=== PATIENT | female | born 1980 | race Caucasian/White ===

== ENCOUNTER 2019-04-18 08:28 | Inpatient (IN) | payer MEDICAID ==
[2019-04-18] MEDS ORDERED: Meropenem 500 MG SDV ONE (09:29)
[2019-04-18] MEDS ORDERED: Lidocaine 1% with EPINEPHrine 1:100,000 50 ML MDV ONE (09:30)
[2019-04-18] MEDS ORDERED: Bupivacaine 0.5% 50 ML MDV ONE (09:30)
[2019-04-18] MEDS ORDERED: Succinylcholine 200 MG/10 ML MDV ONE (09:38)
[2019-04-18] MEDS ORDERED: Ondansetron 4 MG/2 ML SDV ONE (09:38)
[2019-04-18] MEDS ORDERED: fentaNYL 250 MCG/5 ML SDV ONE ×2 (09:38→10:57)
[2019-04-18] MEDS ORDERED: Glycopyrrolate 0.2 MG/ML 5 ML MDV ONE (09:38)
[2019-04-18] MEDS ORDERED: Neostigmine Methylsulfate 1 MG/ML 5 ML Syringe ONE (09:38)
[2019-04-18] MEDS ORDERED: Dexamethasone 4 MG/ML SDV ONE (09:38)
[2019-04-18] MEDS ORDERED: Rocuronium 50 MG/5 ML Vial ONE (09:38)
[2019-04-18] MEDS ORDERED: Propofol 200 MG/20 ML SDV ONE (09:38)
[2019-04-18] MEDS ORDERED: Scopolamine 1.5 MG Transdermal Patch TOP SCH (10:00)
[2019-04-18] MEDS ORDERED: Acetaminophen 500 MG Tab PO ONE (10:00)
[2019-04-18] MEDS ORDERED: Dextrose 5%-Lactated Ringers 1,000 ML IV SCH ×3 (10:00→14:15)
[2019-04-18] MEDS ORDERED: Albuterol/Ipratropium 3.0-0.5 MG/3 ML Neb Soln NEB ONE (10:30)
[2019-04-18] MEDS ORDERED: Magnesium Sulfate 3.3 GM in Sodium Chloride 0.9% 100 ML IV SCH (10:30)
[2019-04-18] MEDS ORDERED: Ketamine 50 MG in Sodium Chloride 0.9% 49.5 ML IV SCH (10:30)
[2019-04-18] MEDS ORDERED: Ketamine 500 MG/5 ML MDV IV SCH (10:30)
[2019-04-18] MEDS ORDERED: Magnesium Sulfate 7 GM in Sodium Chloride 0.9% 250 ML IV ONE (10:30)
[2019-04-18] MEDS ORDERED: cefOXitin 2 GM in Sodium Chloride 0.9% 50 ML IV ONE ×2 (10:30→11:45)
[2019-04-18] MEDS ORDERED: Lactated Ringers 1,000 ML ONE (11:30)
[2019-04-18] MEDS ORDERED: hydrOXYzine HCL 100 MG/2 ML SDV IM ONE (12:20)
[2019-04-18] MEDS ORDERED: fentaNYL 100 MCG/2 ML SDV IVPUSH ONE ×2 (12:21→12:42)
[2019-04-18] MEDS ORDERED: hydrOXYzine HCL 100 MG/2 ML SDV ONE (13:42)
[2019-04-18] MEDS ORDERED: Cyclobenzaprine 10 MG Tab PO PRN ×2 (13:50→14:15)
[2019-04-18] MEDS ORDERED: diphenhydrAMINE 50 MG/ML SDV IVPUSH PRN ×2 (13:50→14:15)
[2019-04-18] MEDS ORDERED: Metoclopramide 10 MG/2 ML SDV IV PRN ×2 (13:50→14:15)
[2019-04-18] MEDS ORDERED: hydrOXYzine HCL 100 MG/2 ML SDV IM PRN ×2 (13:50→14:15)
[2019-04-18] MEDS ORDERED: Non-Formulary Medication 1 Each IV ONE ×2 (13:50)
[2019-04-18] MEDS ORDERED: Ondansetron 4 MG/2 ML SDV IVPUSH PRN ×2 (13:50→14:15)
[2019-04-18] MEDS ORDERED: Labetalol 100 MG/20 ML MDV IVPUSH PRN ×2 (13:50→14:20)
[2019-04-18] MEDS ORDERED: Gabapentin 250 MG/5 ML Solution ML 470 ML Bottle PO SCH (14:00)
[2019-04-18] MEDS ORDERED: Acetaminophen 500 MG Tab PO SCH (14:00)
[2019-04-18] MEDS ORDERED: Calcium Gluconate 10% 1 GM/10 ML SDV IVPUSH PRN (14:24)
[2019-04-18] MEDS ORDERED: Albuterol/Ipratropium 3.0-0.5 MG/3 ML Neb Soln INH PRN (14:24)
[2019-04-18] MEDS ORDERED: Acetaminophen 500 MG Tab PO PRN (14:24)
[2019-04-18] MEDS ORDERED: HYDROmorphone 1 MG/ML Syringe IV PRN (14:24)
[2019-04-18] MEDS ORDERED: oxyCODONE 5 MG Tab PO PRN (14:24)
[2019-04-18] MEDS: HYDROmorphone 0.5 MG/0.5 ML Syringe IVPUSH PRN ×2 (14:45→19:58)
[2019-04-18] MEDS: Albuterol/Ipratropium 3.0-0.5 MG/3 ML Neb Soln INH SCH ×2 (14:47→21:38)
[2019-04-18] MEDS ORDERED: Sodium Ferric Gluconate Cmplex 250 MG in Sodium Chloride 0.9% 100 ML IV ONE (15:00)
[2019-04-18] MEDS ORDERED: Pantoprazole 40 MG Vial IVPUSH SCH (16:00)
[2019-04-18] MEDS ORDERED: MVI, Adult with Vitamin K 10 ML, Thiamine 200 MG, Chromium/Copper/Mang/Selen/Zn 1 ML in... IV SCH ×8 (16:00)
[2019-04-18] MEDS: cefOXitin 2 GM in Sodium Chloride 0.9% 50 ML IV SCH ×2 (16:19→21:17)
[2019-04-18] MEDS: MVI, Adult with Vitamin K 10 ML, Thiamine 200 MG, Chromium/Copper/Mang/Selen/Zn 1 ML in... IV SCH ×4 (16:19)
[2019-04-18] MEDS: Acetaminophen 500 MG Tab PO SCH (18:40)
[2019-04-18] MEDS: Heparin Sodium 5,000 Units/ML Vial SUBCUT SCH (19:45)
[2019-04-18] MEDS: Gabapentin 250 MG/5 ML Solution ML 470 ML Bottle PO SCH (20:05)
[2019-04-18] MEDS: Dextrose 5%-Lactated Ringers 1,000 ML IV SCH (23:04)
[2019-04-19] MEDS: Acetaminophen 500 MG Tab PO SCH ×3 (01:30→19:30)
[2019-04-19] MEDS: HYDROmorphone 0.5 MG/0.5 ML Syringe IVPUSH PRN (02:48)
[2019-04-19] MEDS ORDERED: Iopamidol 612 MG/ML 50 ML SDV PO STA (02:58)
[2019-04-19] MEDS: Dextrose 5%-Lactated Ringers 1,000 ML IV SCH (04:42)
[2019-04-19] MEDS: cefOXitin 2 GM in Sodium Chloride 0.9% 50 ML IV SCH ×2 (04:46→09:00)
[2019-04-19] MEDS: Albuterol/Ipratropium 3.0-0.5 MG/3 ML Neb Soln INH SCH ×4 (07:04→22:15)
[2019-04-19] MEDS ORDERED: Ondansetron 4 MG Tab.DIS PO PRN (07:12)
[2019-04-19] MEDS ORDERED: Celecoxib 200 MG Cap PO SCH (08:00)
[2019-04-19] MEDS: Heparin Sodium 5,000 Units/ML Vial SUBCUT SCH ×2 (08:29→21:00)
[2019-04-19] MEDS: SCOPOLAMINE PATCH CHECK TOP SCH (08:30)
[2019-04-19] MEDS: Celecoxib 200 MG Cap PO SCH ×2 (08:30→22:12)
[2019-04-19] MEDS: HYDROmorphone 2 MG Tab PO PRN ×3 (08:42→19:36)
[2019-04-19] MEDS: Gabapentin 250 MG/5 ML Solution ML 470 ML Bottle PO SCH ×3 (08:43→22:15)
[2019-04-19] MEDS ORDERED: Pantoprazole 40 MG Vial IVPUSH SCH (09:00)
--- NOTE | 2019-04-19 09:06 | CR ---
UGI CLINICAL HISTORY: Status post gastric bypass FINDINGS: Patient swallowed water-soluble contrast. The there is no evidence of leakage or obstruction at the gastric remanent. Delayed images shows contrast through the proximal to mid small bowel IMPRESSION: Status post recent gastric bypass No leakage or obstruction
--- NOTE | 2019-04-19 09:26 | PN ---
DATE OF SERVICE: 04/19/2019 SUBJECTIVE: Sagrario is postoperative day #1. Her upper GI was normal. Her pain has been controlled. She has been quite sleepy. Vital signs stable. Oral intake 420 and urine output 700. REVIEW OF SYSTEMS: Remainder of review of systems negative for any pertinent positives and negatives. OBJECTIVE: GENERAL: Sagrario Cherry is a pleasant 38-year-old female. She arouses easily. VITAL SIGNS: TPR is 96.9, 88, 16, blood pressure 115/60. HEENT: Negative. NECK: Supple. HEART: Regular rate and rhythm. LUNGS: Clear. ABDOMEN: Dressings dry and intact. Abdominal binder is on. EXTREMITIES: Without peripheral edema. ASSESSMENT: 1. Exploratory laparotomy with: a. Reduction of small bowel volvulus and closure of internal hernia. b. Small bowel resection. c. Enterostomy to Paxton-en-Y to redo Paxton-en-Y anatomy. d. Excision of peritoneal body. e. Placement of Interceed mesh for partial small bowel obstruction secondary to small bowel volvulus and stricture of the Paxton limb enterotomy of the jejunostomy and peritoneal body mass 1.5 cm. Date of surgery: 04/18/2019. Surgeon: Bimal Hastings MD. PLAN: Decrease IV to 100 per hour. May shower. Step 3 gastric bypass diet. Dilaudid 2 to 4 mg every 4 hours p.r.n. pain. Zofran ODT 4 mg sublingual q.4 hours p.r.n. nausea. Good pulmonary toilet. We will evaluate p.r.n. or in a.m. Katlyn García PA-C /[id number]
[2019-04-19] MEDS ORDERED: Sodium Ferric Gluconate Cmplex 250 MG in Sodium Chloride 0.9% 100 ML IV ONE (10:00)
[2019-04-19] MEDS ORDERED: Dextrose 5%-Lactated Ringers 1,000 ML IV SCH (12:00)
[2019-04-19] MEDS: MVI, Adult with Vitamin K 10 ML, Thiamine 200 MG, Chromium/Copper/Mang/Selen/Zn 1 ML in... IV SCH ×4 (16:52)
[2019-04-19] MEDS: Pantoprazole 40 MG Delayed-Release Granules 1 Packet PO SCH (16:54)
[2019-04-20] MEDS: Acetaminophen 500 MG Tab PO SCH ×3 (02:17→18:24)
[2019-04-20] MEDS: Albuterol/Ipratropium 3.0-0.5 MG/3 ML Neb Soln INH SCH ×4 (07:18→20:31)
[2019-04-20] MEDS: Heparin Sodium 5,000 Units/ML Vial SUBCUT SCH ×2 (07:33→20:31)
[2019-04-20] MEDS ORDERED: Cyanocobalamin (Vitamin B12) 1,000 MCG/ML SDV IM ONE (09:00)
[2019-04-20] MEDS: Celecoxib 200 MG Cap PO SCH ×2 (09:59→20:31)
[2019-04-20] MEDS: SCOPOLAMINE PATCH CHECK TOP SCH (10:00)
[2019-04-20] MEDS: Gabapentin 250 MG/5 ML Solution ML 470 ML Bottle PO SCH ×3 (10:00→20:34)
[2019-04-20] MEDS ORDERED: Sodium Chloride 0.9% 10 ML Syringe IV PRN (10:07)
[2019-04-20] MEDS: Docusate Sodium 100 MG Cap PO SCH ×2 (12:08→20:31)
[2019-04-20] MEDS: Bisacodyl 5 MG Tab PO SCH ×2 (12:08→20:31)
[2019-04-20] MEDS: Pantoprazole 40 MG Delayed-Release Granules 1 Packet PO SCH (18:23)
[2019-04-21] MEDS: Acetaminophen 500 MG Tab PO SCH ×2 (01:33→10:57)
[2019-04-21] MEDS: Albuterol/Ipratropium 3.0-0.5 MG/3 ML Neb Soln INH SCH (07:30)
[2019-04-21] MEDS: Bisacodyl 5 MG Tab PO SCH (08:09)
[2019-04-21] MEDS: Heparin Sodium 5,000 Units/ML Vial SUBCUT SCH (08:09)
[2019-04-21] MEDS: Celecoxib 200 MG Cap PO SCH (08:09)
[2019-04-21] MEDS: Docusate Sodium 100 MG Cap PO SCH (08:10)
[2019-04-21] MEDS: Gabapentin 250 MG/5 ML Solution ML 470 ML Bottle PO SCH (10:57)
--- NOTE | 2019-04-21 13:34 | PN ---
DATE OF SERVICE: 04/20/2019 The patient has been afebrile with stable vital signs. She stopped burping a little bit and has moved her bowels. She is having probably some element of a GI tract ileus. We will begin some bowel stimulation today. Continue the step 3 diet. Oral intake is up, we will saline lock IV, and that she may be ready for discharge home tomorrow. Bimal Hastings MD /[id number]
--- NOTE | 2019-04-21 14:58 | DISCH ---
FINAL DIAGNOSES: 1. Partial small bowel obstruction secondary to small bowel volvulus and stricture at the point of Paxton limb entering the jejunojejunostomy. 2. Peritoneal body. 3. Bariatric surgery status. 4. History of asthma. 5. History of stress incontinence. OPERATIVE PROCEDURES: Done on 04/18/2019, exploratory laparotomy with: 1. Reduction of small bowel volvulus and closure of internal hernia. 2. Small bowel resection. 3. Secondary enteroenterostomy to reestablish small bowel Paxton-en-Y anatomy. 4. Excision of peritoneal body. 5. Placement of Interceed mesh to limit recurrent adhesion formation. SUMMARY: This is a 38-year-old female status post Paxton-en-Y gastric bypass presenting with a picture of small bowel obstruction. At that time of exploration, she was noted to have small bowel volvulus which was reduced and the mesenteric defect closed. She also had stricturing at the point where the small bowel was entering the jejunojejunostomy and that anastomosis was resected and reconstructed. We did not make any significant changes in her Paxton limb or common limb-lengths. The patient had a peritoneal body which was adherent to the anterior abdominal wall which was excised and Interceed mesh was placed to limit recurrent adhesion formation. Postoperatively, the patient had no major problems. She had been tolerating a step-3 diet, still had a little bit of nausea last night, but it has now cleared. She will be instructed to remove the newly replaced Aquacel dressing on morning. Otherwise, will be following with Katlyn García at [facility] on 04/29/2019 at 10:30 a.m. She will continue her home medications plus Dilaudid 2 to 4 mg p.o. q.4 hours p.r.n. pain #30, Tylenol 1 g p.o. q.6 hours p.r.n. pain, Zofran 4 mg ODT q.4 hours p.r.n. nausea #30, and Celebrex 200 mg p.o. b.i.d. x7 days, #14.
--- NOTE | 2019-04-22 13:05 | OR ---
DATE OF PROCEDURE: 04/18/2019 SURGEON: Bimal Hastings MD PREOPERATIVE DIAGNOSIS: Partial small bowel obstruction. POSTOPERATIVE DIAGNOSES: 1. Partial small bowel obstruction secondary to small bowel volvulus and stricture at the point of the Paxton limb entering jejunojejunostomy. 2. Peritoneal body underlying . OPERATIVE PROCEDURES: Exploratory laparotomy with: 1. Reduction of small bowel volvulus and closure of internal hernia (51603). 2. Small bowel resection (11329). 3. Secondary enteroenterostomy to reestablish Paxton-en-Y small bowel anatomy (50048). 4. Excision of peritoneal body (57591). 5. Placement of Interceed mesh to limit recurrent adhesion formation in the pelvic and abdominal wall and underlying viscera (16704). ANESTHESIA: General. QA REVIEWER: Katlyn García PA-C. INDICATION FOR PROCEDURE: The patient is status post previous Paxton-en-Y gastric bypass with findings suggestive of some partial small bowel obstruction. Plan is to proceed with a limited laparotomy and reduction of a volvulus might be encountered as well as lysis of adhesions and small bowel resection as indicated. Potential risks including bleeding, infection, leaks from GI tract closures, possible recurrence of the problem over time as well as the remote possibility of cardiopulmonary, septic, or hemorrhagic complications leading to were all discussed, and the patient wishes to proceed. DETAILS OF PROCEDURE: The patient was taken to the operating room and placed in a supine position. After general endotracheal anesthesia was induced, a Mazariegos catheter was inserted and the abdomen prepped and draped. A midline incision from the umbilicus roughly a handsbreadth toward the xiphoid was made and carried down through the full-thickness abdominal wall. Upon entering the peritoneal cavity, initially a 1.5 cm peritoneal body was identified adherent to the anterior abdominal wall just to the right of the midline. This was excised and sent as a separate specimen. Following this, examination of the small bowel showed a volvulus involving the area of the jejunojejunostomy prolapsing in a plane underneath the [place] limb. This was reduced. The patient was noted at that point to have a fairly prominent fixed stricture at the point where the small bowel Paxton limb entered the enteroenterostomy. At that point, the decision was made to resect that anastomosis. The components of that jejunojejunostomy were then divided with JEN staplers as was the underlying mesentery. The specimen was delivered from the field. Additional GI tract continuity was then established with anastomosis between what had been the end of the biliopancreatic limb to the beginning of the common limb with a [id number] enteroenterostomy with 60 mm JEN stapler. The common opening was closed transversely with the same stapler and the angles anastomosed and reinforced with some 3-0 Vicryl stitch and the mesenteric defect with a 2-0 silk stitch. GI tract continuity was then established roughly 20 cm distal to that anastomosis with the anastomosis of the Paxton limb to the bowel at that level and the same sequence of staplers was used and the mesenteric defect likewise closed with a 2-0 silk stitch. At that point, no further problems were noted. The abdomen was irrigated with antibiotic-containing saline solution to limit recurrent adhesion formation. Interceed mesh was placed underneath the incision and downward toward the pelvis. The midline fascia was then approximated with #2 Vicryl stitch, subcutaneous tissue with 2 layers of 3-0 and 4-0 Vicryl stitch deep, and marquise for the skin. The patient intraoperatively received bilateral transversus abdominis plane blocks and also the fascia anesthetized with 1.5% Marcaine mixed with lidocaine. The patient was taken to the recovery room in satisfactory condition. Physician visitor information assistant, Katlyn García, played an essential role in assisting in this case, helping to position the patient, retract structures as needed, as well as suturing and cutting sutures when indicated. Her presence improved patient safety and decreased the operative time. Bimal Hastings MD /[id number]
== END 2019-04-21 10:45 | disposition home or self-care (01) | DRG 326 ==
LOC: JP.SDSSCHI 08:28 → JP.SDS 08:29 → JP.MS 12:05 → EDSTATUS 13:00
PROVIDERS: ADMIT Surgery; ATTEND Surgery
PROC: 0D160ZA Bypass Stomach to Jejunum, Open Approach (ICD-10-PCS; principal; 2019-04-18)
PROC: 0DS80ZZ Reposition Small Intestine, Open Approach (ICD-10-PCS; 2019-04-18)
PROC: 0DB80ZZ Excision of Small Intestine, Open Approach (ICD-10-PCS; 2019-04-18)
PROC: 0HB9XZZ Excision of Perineum Skin, External Approach (ICD-10-PCS; 2019-04-18)
PROC: 3E0M05Z Introduction of Adhesion Barrier into Peritoneal Cavity, Open Approach (ICD-10-PCS; 2019-04-18)
DX: K95.89 Other complications of other bariatric procedure (principal); K56.2 Volvulus; K91.2 Postsurgical malabsorption, not elsewhere classified; E66.01 Morbid (severe) obesity due to excess calories; J45.909 Unspecified asthma, uncomplicated; E53.8 Deficiency of other specified B group vitamins; E55.9 Vitamin D deficiency, unspecified; K46.9 Unspecified abdominal hernia without obstruction or gangrene; Z79.51 Long term (current) use of inhaled steroids; Z79.2 Long term (current) use of antibiotics; Z79.899 Other long term (current) drug therapy; Z98.84 Bariatric surgery status; Z68.36 Body mass index [BMI] 36.0-36.9, adult
CPT/HCPCS: 74240; 74240-26; 74246-26; 81025; 88305; 88307; 93005; 94640; A9270-GY; C9113; J0171; J0330; J0694; J1100; J1170; J1644; J2185; J2405; J2704; J2710; J2795; J2916; J3010; J3410; J3411; J3420; J3475; J3490; J7050; J7120; J7121; J7620-GY; Q9967

== ENCOUNTER 2019-10-07 07:14 | Inpatient (IN) | payer MEDICAID ==
[~2019-10-07 07:14] MED LIST: Dexamethasone 4 MG/ML SDV ONE; Glycopyrrolate 0.2 MG/ML 5 ML MDV ONE; Meropenem 500 MG SDV ONE; Neostigmine Methylsulfate 1 MG/ML 5 ML Syringe ONE; Ondansetron 4 MG/2 ML SDV ONE; Rocuronium 50 MG/5 ML Vial ONE; Succinylcholine 200 MG/10 ML MDV ONE; fentaNYL 250 MCG/5 ML SDV ONE
[2019-10-07] MEDS ORDERED: Acetaminophen 500 MG Tab PO ONE ×2 (08:15→15:16)
[2019-10-07] MEDS ORDERED: Celecoxib 200 MG Cap PO ONE (08:15)
[2019-10-07] MEDS ORDERED: Dextrose 5%-Lactated Ringers 1,000 ML IV SCH (08:45)
[2019-10-07] MEDS ORDERED: diphenhydrAMINE 25 MG Cap PO PRN (09:30)
[2019-10-07] MEDS ORDERED: HYDROmorphone/Normal Saline 15 MG/30 ML PCA IV PRN (09:30)
[2019-10-07] MEDS ORDERED: Ketamine 50 MG in Sodium Chloride 0.9% 49.5 ML IV SCH (09:30)
[2019-10-07] MEDS ORDERED: ceFAZolin 2 GM in Premix Bag 1 BAG IV ONE (09:30)
[2019-10-07] MEDS ORDERED: Albuterol 8 GM Inhaler INH ONE (09:30)
[2019-10-07] MEDS ORDERED: Ketamine 500 MG/5 ML MDV IV SCH (09:30)
[2019-10-07] MEDS ORDERED: diphenhydrAMINE 50 MG/ML SDV IVPUSH PRN (09:30)
[2019-10-07] MEDS ORDERED: Ondansetron 4 MG/2 ML SDV IVPUSH PRN ×2 (09:30→14:20)
[2019-10-07] MEDS ORDERED: Naloxone 0.4 MG/ML SDV IVPUSH PRN (09:30)
[2019-10-07] MEDS ORDERED: Ropivacaine 50 ML, dexAMETHasone 8 MG, EPINEPHrine 0.4 MG, Sodium Chloride 0.9% 27.6 ML NERVRT SCH ×4 (09:30)
[2019-10-07] MEDS ORDERED: Naloxone 0.4 MG/ML SDV IV PRN (10:00)
[2019-10-07] MEDS ORDERED: fentaNYL 250 MCG/5 ML SDV ONE (11:57)
[2019-10-07] MEDS ORDERED: Lactated Ringers 1,000 ML ONE (12:01)
[2019-10-07] MEDS ORDERED: Rocuronium 50 MG/5 ML Vial ONE (12:16)
[2019-10-07] MEDS: Lidocaine 1% with EPINEPHrine 1:100,000 50 ML MDV ONE ×2 (12:25→12:51)
[2019-10-07] MEDS: Bupivacaine 0.5% 30 ML SDV ONE ×2 (12:25→12:51)
[2019-10-07] MEDS ORDERED: Propofol 200 MG/20 ML SDV ONE (12:54)
[2019-10-07] MEDS ORDERED: hydrOXYzine HCL 100 MG/2 ML SDV IM ONE (13:41)
[2019-10-07] MEDS ORDERED: hydrOXYzine HCL 100 MG/2 ML SDV IM PRN (14:19)
[2019-10-07] MEDS ORDERED: Albuterol/Ipratropium 3.0-0.5 MG/3 ML Neb Soln INH PRN (15:00)
[2019-10-07] MEDS: Cyclobenzaprine 10 MG Tab PO PRN ×2 (15:04→22:31)
[2019-10-07] MEDS ORDERED: Lactated Ringers 500 ML IV ONE (15:15)
[2019-10-07] MEDS: Albuterol/Ipratropium 3.0-0.5 MG/3 ML Neb Soln INH SCH ×2 (15:38→21:13)
[2019-10-07] MEDS: Dextrose 5%-Lactated Ringers 1,000 ML IV SCH ×2 (15:41→22:15)
[2019-10-07] MEDS: ceFAZolin 2 GM in Premix Bag 1 BAG IV SCH (17:27)
[2019-10-07] MEDS: Acetaminophen 500 MG Tab PO SCH (21:14)
[2019-10-08] MEDS: ceFAZolin 2 GM in Premix Bag 1 BAG IV SCH ×2 (02:25→09:45)
[2019-10-08] MEDS: Acetaminophen 500 MG Tab PO SCH ×4 (03:12→21:00)
[2019-10-08] MEDS: Dextrose 5%-Lactated Ringers 1,000 ML IV SCH (04:28)
[2019-10-08] MEDS ORDERED: Ondansetron 4 MG Tab.DIS PO PRN (06:56)
[2019-10-08] MEDS: Albuterol/Ipratropium 3.0-0.5 MG/3 ML Neb Soln INH SCH ×4 (07:50→21:00)
[2019-10-08] MEDS: Bisacodyl 5 MG Tab PO SCH ×2 (08:28→21:00)
[2019-10-08] MEDS: Docusate Sodium 100 MG Cap PO SCH ×2 (08:28→21:00)
[2019-10-08] MEDS: HYDROmorphone 2 MG Tab PO PRN ×3 (08:29→19:34)
[2019-10-08] MEDS ORDERED: Cyanocobalamin (Vitamin B12) 1,000 MCG/ML SDV IM ONE (09:00)
--- NOTE | 2019-10-08 09:01 | PN ---
DATE OF SERVICE: 10/08/2019 SUBJECTIVE: Sagrario is postoperative day #1. Pain has been controlled with the LEARN [employer] IN[employer]CTOR. She is desiring to switch to oral pain medication. She has been up ambulating. Oral intake 1480. Urine output via Mazariegos catheter is 1095. She has no questions or concerns. REVIEW OF SYSTEMS: Remainder of review of systems negative for any pertinent positives and negatives. OBJECTIVE: GENERAL: Sagrario Cherry is a pleasant 39-year-old female. She is alert and orientated. Color pale. VITAL SIGNS: TPR at 0314, 96.7, 76, 16, and blood pressure 98/52. HEENT: Negative. NECK: Supple. HEART: Regular rate and rhythm. LUNGS: Clear. ABDOMEN: Dressing dry and intact. Abdominal binder is on. EXTREMITIES: Without peripheral edema. ASSESSMENT: Exploratory laparotomy with lysis of adhesions. 1. Reduction of small bowel volvulus and closure of internal hernia. 2. Repair of incarcerated incisional hernia with mesh. 3. Excision of peritoneal nodule. POSTOPERATIVE DIAGNOSES: 1. Incarcerated incisional hernia. 2. Extensive adhesions with small bowel volvulus. 3. Elongated peritoneal nodule on abdominal wall, 7 cm total. Date of procedure 10/07/2019. Surgeon: Bimal Hastings MD. PLAN: 1. Magnesium 2 g IV q.6 hours x72 hours. 2. Step 2 gastric bypass diet. 3. Discontinue D5 LR and change to lactated Ringer 100 mL/h. 4. Discontinue Mazariegos. 5. Discontinue LEARN TO SWIM INSTRUCTOR, continuous pulse ox. 6. Dilaudid 2 mg 2 to 4 q.4 hours p.r.n. pain. 7. May shower. 8. Colace 100 mg b.i.d. 9. Dulcolax 10 mg 2 tablets b.i.d. orally and discontinue when the patient has bowel movement. 10.Continue use of incentive spirometer as directed. 11.We will evaluate p.r.n. or in a.m. Katlyn García PA-C /[id number]
[2019-10-08] MEDS: Magnesium Sulfate/Water 2 GM in Premix Bag 1 BAG IV SCH ×3 (10:57→21:00)
[2019-10-08] MEDS: Cyclobenzaprine 10 MG Tab PO PRN (12:02)
[2019-10-08] MEDS: Lactated Ringers 1,000 ML IV SCH (18:23)
[2019-10-09] MEDS: Acetaminophen 500 MG Tab PO SCH ×4 (03:07→21:00)
[2019-10-09] MEDS: Magnesium Sulfate/Water 2 GM in Premix Bag 1 BAG IV SCH ×4 (03:07→21:01)
[2019-10-09] MEDS: Albuterol/Ipratropium 3.0-0.5 MG/3 ML Neb Soln INH SCH ×4 (06:59→20:56)
[2019-10-09] MEDS: HYDROmorphone 2 MG Tab PO PRN ×3 (07:41→17:26)
[2019-10-09] MEDS: Cyclobenzaprine 10 MG Tab PO PRN ×2 (08:26→20:58)
[2019-10-09] MEDS: Bisacodyl 5 MG Tab PO SCH ×2 (08:34→20:56)
[2019-10-09] MEDS: Docusate Sodium 100 MG Cap PO SCH ×2 (08:34→20:56)
[2019-10-09] MEDS: Bisacodyl 10 MG Supp RECTAL SCH ×2 (09:59→20:56)
[2019-10-09] MEDS: Metoclopramide 10 MG/2 ML SDV IV SCH ×3 (09:59→20:56)
--- NOTE | 2019-10-09 12:08 | PN ---
DATE OF SERVICE: 10/09/2019 SUBJECTIVE: Sagrario states she has not had a bowel movement. She still feels "burpy." She has been up ambulating. Vital signs have been stable. Oral intake 3115 and urine output 900. She has had 100% of breakfast, lunch, and dinner on a step 2 gastric bypass diet. REVIEW OF SYSTEMS: Remainder of review of systems negative for any pertinent positives and negatives. OBJECTIVE: GENERAL: Sagrario Cherry is a 39-year-old female. She is alert and orientated. VITAL SIGNS: TPR at 03:09, 97.8; 76; 16; blood pressure 117/64. HEENT: Negative. NECK: Supple. HEART: Regular rate and rhythm. LUNGS: Clear. ABDOMEN: Slightly distended, but soft. Dressing dry and intact. Abdominal binder is on. EXTREMITIES: Without peripheral edema. ASSESSMENT: 1. Exploratory laparotomy with lysis of adhesion. 2. Reduction of small bowel volvulus and closure of internal hernia. 3. Repair of incarcerated incisional hernia. 4. Excision of peritoneal nodule. POSTOPERATIVE DIAGNOSES: 1. Incarcerated incisional hernia. 2. Extensive adhesions with small bowel volvulus. 3. Elongated peritoneal nodule on abdominal wall, 7 cm total. 4. Date of procedure: 10/07/2019. Surgeon: Bimal Hastings MD. PLAN: 1. Dulcolax suppositories b.i.d. scheduled. 2. Reglan 10 mg IV q.6 hours scheduled. 3. Step 3 gastric bypass diet. 4. We will plan discharge in a.m. if the patient has bowel movement. 5. Continue to use incentive spirometer and ambulate. Katlyn García PA-C /[id number]
--- NOTE | 2019-10-09 16:10 | OR ---
DATE OF PROCEDURE: 10/07/2019 SURGEON: Bimal Hastings MD PREOPERATIVE DIAGNOSIS: Incisional hernia. POSTOPERATIVE DIAGNOSES: 1. Incarcerated incisional hernia. 2. Extensive adhesions associated with small bowel volvulus. 3. Elongated peritoneal nodule on falciform ligament extending onto the anterior abdominal wall. OPERATIVE PROCEDURES: Exploratory laparotomy with lysis of adhesions and: 1. Reduction of small bowel volvulus and closure of internal hernia (67057). 2. Repair of incarcerated incisional hernia with mesh (03138, 30378). 3. Excision of peritoneal nodule extending from falciform ligament onto anterior abdominal wall (7 cm in total length) (13024). ANESTHESIA: General. SLEEVE TAILOR: Katlyn García PA-C INDICATION FOR PROCEDURE: This is a 39-year-old female presenting with an incisional hernia located in epigastric incision. The fascial defect appeared to be quite broad-based and given this we will proceed with an open approach to allow a more effective primary closure of the fascia overlying the mesh repair given the patient has somewhat more stable abdominal wall. Potential risks of the procedure including bleeding, infection, injury to underlying viscera, problems with mesh becoming infected or the hernia recurring were all reviewed, along with the remote possibility of cardiopulmonary, septic, or hemorrhagic complications leading to , and the patient wishes to proceed. DETAILS OF PROCEDURE: The patient was taken to the operating room, and after general endotracheal anesthesia was induced, a Mazariegos catheter was inserted, and the abdomen prepped and draped. The previous upper midline incision was then reused which extended from the umbilicus roughly a handsbreadth towards the xiphoid. The previous subcutaneous scar was excised. This was carried down through skin and subcutaneous tissue. In the lower half of that incision, the underlying incisional hernia sac was encountered. This was dissected down circumferentially to the level of fascia inside after which the sac was opened. The patient had some incarcerated component within it. This definitely had some adherent small bowel, this was dissected free from the surrounding soft tissues and the hernia sac excised. Examination of the small bowel showed some distention of the area around the jejunojejunostomy. After fairly extensive lysis of adhesions, the patient was noted to have a recurrent focal volvulus with the small bowel consisting of the Paxton limb passing underneath an area of mesenteric defect adjacent to the jejunojejunostomy. This was reduced and that defect closed with a 2-0 silk stitch. At that point, the entire small bowel was run and no additional abnormalities were noted. At this point, further resection and that identified elongated thin peritoneal nodule of uncertain nature. This was measured around 7 cm and this was along with some attached falciform ligament in it. Abdominal wall and peritoneum were excised and sent for histologic evaluation. Total length of this area of involvement was around 7 cm. At this point, the abdominal wall was measured out. The defect was fairly circular which would make recurrence in the lateral direction at quite high risk. Given this, a Ventrio ST hernia patch measuring 19.4 x 24.6 cm was selected. This was eventually placed with long axis in the transverse orientation. A 5 cm interval surrounding its circumference on the polypropylene side of the mesh and 2-0 Vicryl sutures were placed, and at that point where those sutures will be pulled up which would fix it well away from the fascial defect. Two small stab wounds were made in the skin. The mesh was then soaked in antibiotic-containing saline solution and initially placed in intraperitoneal location. The left side of the sutures were then pulled up through the premarked stab wounds mesh on the left side of the abdomen. Interceed mesh x2 was then placed underneath the mesh to limit recurrent adhesion formation between the mesh and surrounding abdominal and pelvic wall and the underlying viscera as there was no omentum available for coverage of this area. Remaining sutures were then pulled up thus fixing the mesh well away from the fascial defect. The mesh was then additionally fixed circumferentially with titanium tacking screws placed in underlying shelf which protected the viscera from the exposure of the titanium tacking screws. The abdomen was then irrigated with antibiotic-containing saline solution. The midline fascia was then approximated with #2 Vicryl stitch, subcutaneous tissue with 3-0 and 4-0 Vicryl stitch deep, and marquise for the skin. Prior to closure, bilateral transversus abdominis plane blocks were placed and the incision itself was anesthetized with 1% lidocaine mixed with Marcaine and the patient was taken to the recovery room in satisfactory condition. There were no evident complications. Physician physical therapy assistant, Katlyn García, played an essential role in assisting in this case helping to position the patient, retract structures as needed, as well as suturing and cutting sutures when indicated. Her presence improved patient safety and decreased the operative time. Bimal Hastings MD /[id number]
[2019-10-09] MEDS: Lactated Ringers 1,000 ML IV SCH (19:40)
[2019-10-10] MEDS: HYDROmorphone 2 MG Tab PO PRN ×2 (03:09→08:01)
[2019-10-10] MEDS: Acetaminophen 500 MG Tab PO SCH ×2 (03:09→09:29)
[2019-10-10] MEDS: Magnesium Sulfate/Water 2 GM in Premix Bag 1 BAG IV SCH ×2 (03:10→09:56)
[2019-10-10] MEDS: Metoclopramide 10 MG/2 ML SDV IV SCH ×2 (03:10→09:56)
[2019-10-10] MEDS: Albuterol/Ipratropium 3.0-0.5 MG/3 ML Neb Soln INH SCH (06:57)
[2019-10-10] MEDS: Cyclobenzaprine 10 MG Tab PO PRN (09:29)
[2019-10-10] MEDS: Bisacodyl 5 MG Tab PO SCH (09:56)
[2019-10-10] MEDS: Bisacodyl 10 MG Supp RECTAL SCH (09:56)
[2019-10-10] MEDS: Docusate Sodium 100 MG Cap PO SCH (09:56)
--- NOTE | 2019-10-10 15:22 | DISCH ---
ADMISSION DIAGNOSES: 1. Incisional hernia. 2. Status post Paxton-en-Y gastric bypass surgery. 3. Unspecified surgical malabsorption. 4. B12 deficiency. DISCHARGE DIAGNOSES: Exploratory laparotomy with lysis of adhesions: 1. Reduction of small bowel volvulus and closure of internal hernia. 2. Repair of incarcerated incisional hernia with mesh. 3. Excision of peritoneal nodule extending from falciform ligament on to anterior abdominal wall, 7 cm in total length. POSTOPERATIVE DIAGNOSES: 1. Incarcerated incisional hernia. 2. Extensive adhesions associated with small bowel volvulus. 3. Elongated peritoneal nodule on falciform ligament extending on to the anterior abdominal wall. Date of procedure on 10/07/2019. Surgeon: Bimal Hastings MD. HISTORY: Sagrario Cherry is a 39-year-old female presenting with an incisional hernia located in the epigastric area. After preoperative evaluation and discussion of possible risks and possible complications, she wishes to proceed with surgical procedure. HOSPITAL COURSE: Sagrario had her surgery on 10/07/2019. She had no operative complications. On postoperative day #1, she was started on step 2 gastric bypass diet. Magnesium was replaced 2 g IV q.6 hours. She was changed to oral pain medication and IV rate was decreased. On postoperative day #2, she was given bowel stimulation and advanced to step 3 diet. On 10/10/2019, she was able to be discharged to home. Vital signs stable, afebrile. Oral intake and output adequate. Pain was controlled and activity was good. PHYSICAL EXAMINATION: GENERAL: Sagrario Cherry is a pleasant 39-year-old female. Height 5 feet 8 inches. Weight is 211 pounds. VITAL SIGNS: TPR at 0700, 96.9, 97, 16, blood pressure is 118/67. HEENT: Negative. NECK: Supple. HEART: Regular rate and rhythm. LUNGS: Clear. ABDOMEN: Aquacel dressings on. Pressure dressing is not on this morning but will be replaced prior to discharge. EXTREMITIES: Without peripheral edema. DISPOSITION: Discharged to home. CONDITION: Stable and improving. FOLLOWUP APPOINTMENT: Katlyn García PA-C, at on 10/18/2019, at 9:45 a.m. HOME MEDICATIONS: 1. Dilaudid 2 mg every 4 hours p.r.n. pain #42. 2. Flexeril 10 mg q.8 hours p.r.n. muscle spasms #30. 3. Tylenol Extra Strength 1000 mg every 6 hours p.r.n. pain. To resume home medication: 1. Albuterol inhaler 2 puffs every 4 hours p.r.n. shortness of breath. 2. Calcium supplement one twice daily. 3. Vitamin B12 1000 mcg injection every 3 weeks. 4. Vitamin B12 1000 mcg sublingual daily. 5. Bentyl 20 mg every 6 hours p.r.n. abdominal pain and bloating. 6. Ferrous sulfate 325 mg oral daily. 7. Hyoscyamine 0.125 mg sublingual every 4 hours p.r.n. esophageal spasm. 8. Flintstones one chewable b.i.d. 9. Vitamin B2 400 mg oral daily. 10.Tretinoin one applicator topical daily p.r.n. eczema. 11.Triamcinolone 0.1% cream one applicator p.r.n. rash. DIET: Step 3 gastric bypass diet. Drink 8 to 10 glasses of water a day. ACTIVITY: No lifting greater than 10 pounds for 6 weeks. Other activity: Walk at least 6 times daily inside your home. Driving: Do not drive for 1 week and while on pain medication. Shower/bathing: May shower. DISCHARGE INSTRUCTIONS: Notify provider if any fever, increased pain, nausea, or vomiting. Wound incision care: Keep site clean and dry. Wear abdominal binder with a pressure dressing over hernia site for 8 weeks. Use incentive spirometer 10 times every hour while awake, and take off Aquacel dressing on 10/13/2019.
== END 2019-10-10 13:20 | disposition home or self-care (01) | DRG 329 ==
LOC: JP.SDSSCHI 07:14 → JP.SDS 07:14 → EDSTATUS 12:15 → JP.MS 13:00
PROVIDERS: ADMIT Surgery; ATTEND Surgery
PROC: 0DS80ZZ Reposition Small Intestine, Open Approach (ICD-10-PCS; principal; 2019-10-07)
PROC: 0WUF0JZ Supplement Abdominal Wall with Synthetic Substitute, Open Approach (ICD-10-PCS; 2019-10-07)
PROC: 0DBW0ZZ Excision of Peritoneum, Open Approach (ICD-10-PCS; 2019-10-07)
DX: K95.89 Other complications of other bariatric procedure (principal); K56.2 Volvulus; K91.2 Postsurgical malabsorption, not elsewhere classified; K43.0 Incisional hernia with obstruction, without gangrene; E66.9 Obesity, unspecified; E53.8 Deficiency of other specified B group vitamins; K43.9 Ventral hernia without obstruction or gangrene; Z91.030 Bee allergy status; Z88.1 Allergy status to other antibiotic agents; Z68.32 Body mass index [BMI] 32.0-32.9, adult
CPT/HCPCS: 36415; 80053; 81025; 82728; 82746; 83735; 84100; 85027; 88302; 88305; 94640; 94762; A9270-GY; C1713; C1781; J0171; J0330; J0690; J1100; J1170; J2020; J2185; J2405; J2704; J2710; J2765; J2795; J3010; J3410; J3420; J3475; J3490; J7050; J7120; J7121; J7620-GY

== ENCOUNTER 2020-07-03 09:23 | Day surgery (SDC) | payer MEDICAID ==
[2020-07-03] MEDS ORDERED: Neostigmine Methylsulfate 1 MG/ML 5 ML Syringe ONE (09:32)
[2020-07-03] MEDS ORDERED: Glycopyrrolate 0.2 MG/ML 5 ML MDV ONE (09:32)
[2020-07-03] MEDS ORDERED: Rocuronium 50 MG/5 ML Vial ONE (09:32)
[2020-07-03] MEDS ORDERED: Dexamethasone 4 MG/ML SDV ONE (09:32)
[2020-07-03] MEDS ORDERED: Propofol 200 MG/20 ML SDV ONE (09:32)
[2020-07-03] MEDS ORDERED: Ondansetron 4 MG/2 ML SDV ONE (09:32)
[2020-07-03] MEDS ORDERED: Ketorolac 60 MG/2 ML SDV ONE (10:01)
[2020-07-03] MEDS: Dextrose 5%-Lactated Ringers 1,000 ML IV SCH (10:14)
[2020-07-03] MEDS: Bupivacaine 0.5%/EPINEPHrine 1:200,000 50 ML MDV ONE ×4 (10:32→13:36)
[2020-07-03] MEDS ORDERED: Albuterol/Ipratropium 3.0-0.5 MG/3 ML Neb Soln NEB ONE (10:45)
[2020-07-03] MEDS ORDERED: Acetaminophen 500 MG Tab PO ONE (10:45)
[2020-07-03] MEDS ORDERED: Levofloxacin/Dextrose 5%-Water 100 ML IV ONE (11:00)
[2020-07-03] MEDS ORDERED: Ketamine 500 MG/5 ML MDV IV SCH (11:30)
[2020-07-03] MEDS ORDERED: Ketamine 50 MG in Sodium Chloride 0.9% 49.5 ML IV SCH (11:30)
[2020-07-03] MEDS ORDERED: fentaNYL 250 MCG/5 ML SDV ONE (12:34)
[2020-07-03] MEDS ORDERED: fentaNYL 100 MCG/2 ML SDV ONE (12:45)
[2020-07-03] MEDS ORDERED: fentaNYL 100 MCG/2 ML SDV IVPUSH ONE (14:02)
[2020-07-03] MEDS ORDERED: hydrOXYzine HCL 100 MG/2 ML SDV IM ONE (14:02)
[2020-07-03] MEDS ORDERED: Albuterol/Ipratropium 3.0-0.5 MG/3 ML Neb Soln INH PRN (15:17)
[2020-07-03] MEDS ORDERED: Pantoprazole 40 MG Vial IVPUSH SCH (16:00)
[2020-07-03] MEDS ORDERED: HYDROmorphone 1 MG/ML Syringe IV PRN (16:00)
[2020-07-03] MEDS ORDERED: Ondansetron 4 MG/2 ML SDV IVPUSH PRN (16:00)
[2020-07-03] MEDS ORDERED: HYDROmorphone 0.5 MG/0.5 ML Syringe IVPUSH PRN (16:00)
[2020-07-03] MEDS: Acetaminophen/HYDROcodone 325-5 MG Tab PO PRN ×2 (16:34→21:03)
[2020-07-03] MEDS: cefOXitin 2 GM in Sodium Chloride 0.9% 50 ML IV SCH (17:53)
[2020-07-04] MEDS: Dextrose 5%-Lactated Ringers 1,000 ML IV SCH (00:04)
[2020-07-04] MEDS: cefOXitin 2 GM in Sodium Chloride 0.9% 50 ML IV SCH ×3 (05:57)
--- NOTE | 2020-07-06 17:43 | DISCH ---
FINAL DIAGNOSES: 1. Subacute cholecystitis with gallbladder sludge. 2. Peritoneal nodule over surface of liver. 3. Extensive small bowel adhesions through abdominal wall with focal small bowel deserosalization, status post takedown of adhesions. OTHER DIAGNOSES: Include: 1. Bariatric surgery status. 2. History of migraines. 3. Allergic rhinitis with seasonal allergies. 4. Exercise-induced asthma. OPERATIVE PROCEDURES: Done on 07/03/2020, diagnostic laparoscopy with: 1. Cholecystectomy. 2. Excision of peritoneal nodule overlying the liver. 3. Repair of area of small bowel deserosalization. SUMMARY: This is a 39-year-old presenting with some ongoing right abdominal pain. A HIDA scan showed nonfilling of gallbladder consistent with occluded cystic duct typically associated with acute or subacute cholecystitis. On the day of admission, the patient underwent a diagnostic laparoscopy. She did have a markedly edematous and reddened gallbladder. Cholecystectomy was otherwise accomplished in an uncomplicated manner. She had a peritoneal nodule of uncertain nature over the liver adjacent to the gallbladder. There was quite a bit in the way of adhesions between the small bowel, omentum, and upper abdomen. These were taken down. There was a focal area of deserosalization of the Paxton limb of small bowel, which was repaired with some 3-0 Vicryl seromuscular stitch along with fibrin sealant. Postoperatively, she had no significant problems. Labs looked good this morning. She will be discharged home on her usual medications plus [place] 5/325, 1 to 2 tablets q.6 hours p.r.n. pain. Followup will be with Katlyn García at [facility] on 07/13/2020. /[id number]
--- NOTE | 2020-07-24 12:19 | OR ---
DATE OF PROCEDURE: 07/03/2020 SURGEON: Bimal Hastings MD PREOPERATIVE DIAGNOSIS: Nonfilling of gallbladder on HIDA scan. POSTOPERATIVE DIAGNOSES: 1. Subacute cholecystitis associated with gallbladder sludge and no gallbladder filling on HIDA scan. 2. Peritoneal nodule over surface of liver (2 cm). 3. Extensive small bowel adherence to anterior abdominal wall with focal small bowel deserosalization requiring repair. OPERATIVE PROCEDURES: Diagnostic laparoscopy with: 1. Cholecystectomy (29378). 2. Excision of peritoneal nodule over surface of liver (66176). 3. Repair of area of small bowel deserosalization (64048). ANESTHESIA: General. ANTENNA MACHINE OPERATOR: Katlyn García PA-C. INDICATIONS FOR PROCEDURE: This is a 39-year-old female presenting with some ongoing right upper abdominal pain. As part of the workup, the patient underwent a CCK stimulated HIDA scan. This showed no filling of the gallbladder consistent with an occluded cystic duct associated with ongoing cholecystitis. Plan is to proceed with diagnostic laparoscopy with laparotomy if necessary and cholecystectomy with other procedures as indicated. Potential risks including bleeding, infection, injury to underlying viscera, problems with stones or sludge moving into the common bile duct requiring additional procedures for correction were gone over and the patient wishes to proceed. DETAILS OF PROCEDURE: The patient was taken to the operating room, placed in a supine position. After general endotracheal anesthesia was induced, the abdomen was prepped and draped. A transverse subumbilical incision was made and the peritoneal cavity entered under direct vision with an Optiview trocar, inflated to 15 mmHg with CO2. Laparoscope was then reinserted. No underlying trocar insertion site injuries were seen. Following this, 12 mm epigastric trocar was placed along with 5 mm right abdominal trocar. Bilateral subcostal transversus abdominis plane blocks were then placed and the upper abdomen examined. The patient was initially noted to have quite a bit in the way of adhesions between the Paxton limb and the anterior abdominal wall in the left lower quadrant. These were causing some distortion of the course of the Paxton limb and these adhesions were then taken down with a combination of sharp and Harmonic Scalpel type dissection. There was an area of dense adhesion to the small bowel and the anterior abdominal wall again in the left upper quadrant. On dissection of this, there was deserosalization present in the small bowel. This was repaired with a 3-0 Vicryl seromuscular stitch placed in a [id number] pattern. This closed the deserosalization with a transverse orientation. This area was separately reinforced with 4 mL of fibrin sealant. Attention was then taken to the gallbladder. The patient was noted to have a 2 cm nodular lesion over the surface of the right lobe of liver. This was excised and sent as a separate pathologic specimen. The gallbladder itself was noted to be subacutely inflamed with it being quite edematous and somewhat reddened. Gallbladder was retracted anteriorly and laterally, and dissection began on the gallbladder neck, continued around the gallbladder neck and cystic duct junction. Once that area was well delineated along with adjacent cystic artery, the cystic duct-gallbladder junction was divided with a JEN purple load. The artery was then divided with a set of clips and divided with Harmonic Scalpel. The gallbladder was then dissected off the gallbladder bed and delivered through the epigastric trocar site containing some sludge within it. No well-defined stones were seen. At this point, the area of dissection was inspected. Harry-Marr drain was taken out through the left lateral trocar site. No further problems were noted at this point. Trocars were removed and peritoneal cavity deflated. Fascia at 12 mm sites was closed with 0 Vicryl stitch and the skin with 4-0 Vicryl skin stitch. Dressing was applied. The patient was taken to the recovery room in satisfactory condition. Physician kitchen assistant, Katlyn García, played an essential role in assisting in this case, helping to position the patient, retract structures as needed, as well as suturing and cutting sutures when indicated. Her presence improved patient safety and decreased the operative time. Bimal Hastings MD /[id number]
== END 2020-07-04 11:20 | disposition home or self-care (01) ==
LOC: JP.SDS 09:23 → JP.MS 13:45 → JP.SDS 07-04 11:20
PROVIDERS: ATTEND Surgery
DX: K81.1 Chronic cholecystitis (principal); K66.8 Other specified disorders of peritoneum; K66.0 Peritoneal adhesions (postprocedural) (postinfection); J45.990 Exercise induced bronchospasm; G43.909 Migraine, unspecified, not intractable, without status migrainosus; E66.9 Obesity, unspecified; Z98.890 Other specified postprocedural states; Z79.899 Other long term (current) drug therapy; Z88.8 Allergy status to other drugs, medicaments and biological substances; Z98.84 Bariatric surgery status; Z91.030 Bee allergy status; Z88.7 Allergy status to serum and vaccine
CPT/HCPCS: 36415; 82247; 82607; 82728; 82746; 84075; 85027; 88304; 88305; A9270-GY; C9113; J0171; J0694; J1100; J1885; J1956; J2405; J2704; J2710; J2795; J3010; J3410; J3490; J7121; J7620-GY